=== PATIENT | female | born 1970 | race Caucasian/White ===

== ENCOUNTER → 2022-06-19 11:17 | Outpatient (BNVA) | payer MEDICARE, MEDICAID, SELFPAY | PROVIDERS: Visit Provider Nurse Practitioner Family | DX: J02.9 Acute pharyngitis, unspecified (principal); R68.89 Other general symptoms and signs; J03.90 Acute tonsillitis, unspecified; H65.113 Acute and subacute allergic otitis media (mucoid) (sanguinous) (serous), bilateral; R09.82 Postnasal drip | CPT/HCPCS: 87071; 87400; 87880 ==

== ENCOUNTER → 2022-08-02 14:19 | Outpatient (BNVA) | payer MEDICARE, MEDICAID, SELFPAY | PROVIDERS: Visit Provider Nurse Practitioner Family | DX: J02.9 Acute pharyngitis, unspecified (principal); J03.90 Acute tonsillitis, unspecified; G44.201 Tension-type headache, unspecified, intractable | CPT/HCPCS: 87880 ==